=== PATIENT | male | born 1975 | race American Indian/Alaskan Native ===

== ENCOUNTER 2021-11-28 14:21 | Emergency (ER) | payer BC, OTHER ==
[~2021-11-28] VITALS: Ht 167.6 cm; Wt 68.4 kg
[2021-11-28] MEDS ORDERED: famotidine/PF 10 mg/ml inj IV ONE (15:55)
[2021-11-28] MEDS ORDERED: LIDOcaine Viscous 15ml cup MM ONE (15:55)
[2021-11-28] MEDS ORDERED: normal saline 1000ML IV soln IVB ONE (15:55)
[2021-11-28] MEDS ORDERED: sucralfate 1 gm tablet PO ONE (15:55)
[2021-11-28] MEDS ORDERED: mag hydrox/Alum hydrox/simeth 30ml oral suspension PO ONE (15:55)
[2021-11-28 16:13] LABS: BASOPHILS # (AUTO) 0.1 X10'3 (0-0.2); BASOPHILS % (AUTO) 0.9 % (0-1); EOSINOPHILS # (AUTO) 0.1 X10'3 (0-0.9); EOSINOPHILS % (AUTO) 1.1 % (0-6); HEMATOCRIT 47.1 % (42.0-52.0); HEMOGLOBIN 16.1 g/dl (14.0-17.9); LYMPHOCYTES # (AUTO) 2.8 X10'3 (1.1-4.8); LYMPHOCYTES % (AUTO) 39.2 % (21-51); MEAN CORPUSCULAR HEMOGLOBIN 30.9 PG (27.0-31.0); MEAN CORPUSCULAR HGB CONC 34.1 g/dL (33.0-36.5); MEAN CORPUSCULAR VOLUME 90.4 FL (78-98); MEAN PLATELET VOLUME 8.7 FL (7.4-10.4); MONOCYTES # (AUTO) 0.6 X10'3 (0-0.9); MONOCYTES % (AUTO) 7.8 % (2-12); NEUTROPHILS # (AUTO) 3.6 X10'3 (1.8-7.7); PLATELET COUNT 202 X10'3 (140-440); RED BLOOD COUNT 5.21 X10'6 (4.70-6.10); WHITE BLOOD COUNT 7.1 X10'3 (4.5-11.0)
[2021-11-28 16:35] LABS: ALKALINE PHOSPHATASE 65 IU/L (46-116); eGFR 85 ML/MIN
[2021-11-28 16:37] LABS: ALANINE AMINOTRANSFERASE 38 U/L (12-78); ALBUMIN 3.9 G/DL (3.4-5.0); ALBUMIN/GLOBULIN RATIO 1.1 (1.1-1.5); ANION GAP 17 (8-16); ASPARTATE AMINO TRANSFERASE 28 U/L (10-37); BILIRUBIN,TOTAL 0.3 MG/DL (0.1-1.0); BLOOD UREA NITROGEN 7 MG/DL (7-18); BUN/CREATININE RATIO 7.3 (5.4-32.0); CALCIUM 8.1 MG/DL (8.5-10.1); CREATININE 0.96 MG/DL (0.60-1.10); ETHANOL 0.266 GM/DL (0.0-0.010); GLUCOSE 92 MG/DL (70-104); POTASSIUM 3.8 MMOL/L (3.5-5.1); SODIUM 149 MMOL/L (135-145); TOTAL PROTEIN 7.3 G/DL (6.4-8.2)
[2021-11-28 16:38] LABS: CHLORIDE 112 MMOL/L (99-107)
--- NOTE | 2021-11-28 19:32 | NUR ---
KATHY DOMINGUEZ STATES DISREGARD CURRENT ORDERS AND GIVE 4MG IV ZOFRAN AND PT CAN BE DISCHARGED
[2021-11-28] MEDS ORDERED: ondansetron/PF 4mg/2ml inj IV ONE (19:40)
[2021-11-28 21:42] VITALS: BP 124/86
== END 2021-11-28 21:44 | disposition home or self-care (01) ==
LOC: ER 14:22
DX: K29.20 Alcoholic gastritis without bleeding (principal); F10.129 Alcohol abuse with intoxication, unspecified; E86.0 Dehydration; Z95.2 Presence of prosthetic heart valve; Z98.890 Other specified postprocedural states; Z88.8 Allergy status to other drugs, medicaments and biological substances; Y90.8 Blood alcohol level of 240 mg/100 ml or more
CPT/HCPCS: 36415; 80053; 80320; 83735; 83880; 84484; 85025; 93005; 96374; 99284; J2405